=== PATIENT | male | born 1985 | race Two or more races ===

== ENCOUNTER 2017-12-11 21:37 | Emergency (ER) | payer MEDICAID ==
[~2017-12-11] VITALS: Ht 167.6 cm; Wt 103.4 kg
[~2017-12-11 21:37] MED LIST: AMLO5TAB4 PO; CYCL-1 PO; KETO10TA2 PO; ONDA4TAB6 PO
[2017-12-11 21:47] VITALS: BP 161/126
[2017-12-11] MEDS ORDERED: BUPIVAcaine/PF 2.5 mg/ml (0.25%) 30ml vial IJ ONE (22:25)
[2017-12-11] MEDS ORDERED: PROP40TA72 PO (23:10)
[2017-12-11] MEDS ORDERED: PENI500T2 PO (23:10)
== END 2017-12-11 23:22 | disposition home or self-care (01) ==
LOC: ER 21:37
DX: K04.7 Periapical abscess without sinus (principal); F12.10 Cannabis abuse, uncomplicated; I10 Essential (primary) hypertension; G89.29 Other chronic pain; Z98.890 Other specified postprocedural states; Z88.8 Allergy status to other drugs, medicaments and biological substances; Z79.899 Other long term (current) drug therapy
CPT/HCPCS: 64400; 99284; J3490

== ENCOUNTER 2019-07-02 13:55 | Emergency (ER) | payer MEDICAID ==
[~2019-07-02] VITALS: Ht 167.6 cm; Wt 109.0 kg
[2019-07-02] MEDS ORDERED: PENI500T2 PO (14:22)
[2019-07-02] MEDS ORDERED: BUPIVAcaine 0.5% W/EPI /PF 30ml vial SQ ONE (14:25)
[2019-07-02 14:48] VITALS: BP 150/87
== END 2019-07-02 14:53 | disposition home or self-care (01) ==
LOC: ER 13:56
DX: K08.89 Other specified disorders of teeth and supporting structures (principal); I10 Essential (primary) hypertension; G89.29 Other chronic pain; F41.9 Anxiety disorder, unspecified; F12.90 Cannabis use, unspecified, uncomplicated; Z98.890 Other specified postprocedural states; Z88.8 Allergy status to other drugs, medicaments and biological substances; Z79.2 Long term (current) use of antibiotics; Z79.899 Other long term (current) drug therapy
CPT/HCPCS: 64400; 99284

== ENCOUNTER 2020-03-14 12:32 | Emergency (ER) | payer MEDICAID ==
[~2020-03-14] VITALS: Ht 167.6 cm; Wt 103.0 kg
[2020-03-14 12:44] VITALS: BP 153/110
[2020-03-14] MEDS ORDERED: acetaminophen 325mg tablet PO ONE (14:35)
[2020-03-14 14:56] LABS: CLARITY,URINE CLEAR (Clear); COLOR,URINE YELLOW (Yellow); GLUCOSE, URINE NEGATIVE (Neg); KETONES,URINE NEGATIVE (Neg); LEUKOCYTE ESTERASE ,URINE NEGATIVE (Neg); NITRITES, URINE NEGATIVE (Neg); OCCULT BLOOD,URINE NEGATIVE (Neg); PH,URINE 6.5 (4.8-8.0); PROTEIN,URINE TRACE mg/dl (Neg); UROBILINOGEN,URINE 0.2 E.U/dL (0.2-1.0)
[2020-03-14 15:10] LABS: UA COLLECTION TYPE VOIDED
[2020-03-14 15:11] LABS: BACTERIA,URINE FEW /HPF (Neg); MUCUS STRANDS MANY /LPF (Neg); RBC,URINE NONE SEEN /HPF (0-2); SQUAMOUS EPITHELIAL CELL,UR FEW /LPF (FEW); WBC,URINE 0-4 /HPF (0-4)
[2020-03-14 15:12] LABS: HYALINE CASTS 0-3 /LPF (NEGATIVE)
[2020-03-14] MEDS ORDERED: LIDO700A32 TOP (15:20)
[2020-03-14] MEDS ORDERED: CYCL-1 PO (15:20)
== END 2020-03-14 15:40 | disposition home or self-care (01) ==
LOC: ER 12:33
DX: M54.5 Low back pain (principal); I10 Essential (primary) hypertension; G89.29 Other chronic pain; F41.9 Anxiety disorder, unspecified; F12.90 Cannabis use, unspecified, uncomplicated; Z98.890 Other specified postprocedural states; Z88.8 Allergy status to other drugs, medicaments and biological substances; Z79.899 Other long term (current) drug therapy
CPT/HCPCS: 76775; 81001; 99284

== ENCOUNTER 2020-04-15 10:43 | Emergency (ER) | payer MEDICAID ==
[~2020-04-15] VITALS: Ht 167.6 cm; Wt 109.1 kg
[~2020-04-15 10:43] MED LIST changes: +LIDO700A32 TOP
[2020-04-15 10:52] VITALS: BP 165/119
[2020-04-15] MEDS ORDERED: amLODIPine 5mg tablet PO ONE (11:15)
[2020-04-15 11:54] LABS: BASOPHILS % (AUTO) 0.4 % (0-1); EOSINOPHILS # (AUTO) 0.2 X10'3 (0-0.9); EOSINOPHILS % (AUTO) 2.3 % (0-6); HEMATOCRIT 42.9 % (42.0-52.0); HEMOGLOBIN 14.8 g/dl (14.0-17.9); LYMPHOCYTES # (AUTO) 1.9 X10'3 (1.1-4.8); MEAN CORPUSCULAR HEMOGLOBIN 30.3 PG (27.0-31.0); MEAN CORPUSCULAR HGB CONC 34.5 g/dL (33.0-36.5); MEAN CORPUSCULAR VOLUME 87.9 FL (78-98); MEAN PLATELET VOLUME 7.5 FL (7.4-10.4); MONOCYTES # (AUTO) 0.8 X10'3 (0-0.9); MONOCYTES % (AUTO) 8.6 % (2-12); NEUTROPHILS # (AUTO) 6.8 X10'3 (1.8-7.7); NEUTROPHILS % (AUTO) 69.7 % (42-75); PLATELET COUNT 335 X10'3 (140-440); RED BLOOD COUNT 4.87 X10'6 (4.70-6.10); RED CELL DISTRIBUTION WIDTH 14.7 % (11.5-14.5); WHITE BLOOD COUNT 9.8 X10'3 (4.5-11.0)
[2020-04-15 12:02] LABS: ALANINE AMINOTRANSFERASE 64 U/L (12-78); ALBUMIN 3.9 G/DL (3.4-5.0); ALBUMIN/GLOBULIN RATIO 1.1 (1.1-1.5); ALKALINE PHOSPHATASE 85 IU/L (46-116); ANION GAP 8 (8-16); ASPARTATE AMINO TRANSFERASE 19 U/L (10-37); BILIRUBIN,TOTAL 0.5 MG/DL (0.1-1.0); BLOOD UREA NITROGEN 12 MG/DL (7-18); BUN/CREATININE RATIO 11.4 (5.4-32.0); CALCIUM 9.5 MG/DL (8.5-10.1); CHLORIDE 108 MMOL/L (99-107); CREATININE 1.05 MG/DL (0.60-1.10); GLUCOSE 96 MG/DL (70-104); SODIUM 147 MMOL/L (135-145); TOTAL CARBON DIOXIDE 30.8 MMOL/L (24-32); TOTAL PROTEIN 7.5 G/DL (6.4-8.2); eGFR 80 ML/MIN
[2020-04-15 12:04] LABS: POTASSIUM 2.6 MMOL/L (3.5-5.1)
[2020-04-15] MEDS ORDERED: potassium chloride 10mEq ER tablet PO STA (12:15)
[2020-04-15] MEDS ORDERED: POTA10TA19 PO (12:51)
[2020-04-15] MEDS ORDERED: NICO-631 TD (13:33)
== END 2020-04-15 13:39 | disposition home or self-care (01) ==
LOC: ER 10:45
DX: E87.6 Hypokalemia (principal); I10 Essential (primary) hypertension; G89.29 Other chronic pain; F41.9 Anxiety disorder, unspecified; F12.90 Cannabis use, unspecified, uncomplicated; Z98.890 Other specified postprocedural states; Z88.8 Allergy status to other drugs, medicaments and biological substances; Z79.899 Other long term (current) drug therapy
CPT/HCPCS: 36415; 80053; 85025; 99283

== ENCOUNTER 2020-07-31 17:22 | Emergency (ER) | payer MEDICAID ==
[~2020-07-31] VITALS: Ht 167.6 cm; Wt 109.1 kg
--- NOTE | 2020-07-31 18:53 | NUR ---
beverley holman with pt now. pt to have labsdrawn and collect a covid send out.
[2020-07-31 19:23] LABS: BASOPHILS # (AUTO) 0.1 X10'3 (0-0.2); BASOPHILS % (AUTO) 0.5 % (0-1); EOSINOPHILS # (AUTO) 0.3 X10'3 (0-0.9); EOSINOPHILS % (AUTO) 2.7 % (0-6); HEMATOCRIT 43.5 % (42.0-52.0); HEMOGLOBIN 14.8 g/dl (14.0-17.9); LYMPHOCYTES # (AUTO) 2.3 X10'3 (1.1-4.8); LYMPHOCYTES % (AUTO) 21.5 % (21-51); MEAN CORPUSCULAR HEMOGLOBIN 29.6 PG (27.0-31.0); MEAN CORPUSCULAR HGB CONC 34.1 g/dL (33.0-36.5); MEAN CORPUSCULAR VOLUME 86.8 FL (78-98); MEAN PLATELET VOLUME 7.3 FL (7.4-10.4); MONOCYTES # (AUTO) 0.9 X10'3 (0-0.9); MONOCYTES % (AUTO) 8.7 % (2-12); NEUTROPHILS % (AUTO) 66.6 % (42-75); PLATELET COUNT 321 X10'3 (140-440); RED BLOOD COUNT 5.01 X10'6 (4.70-6.10); RED CELL DISTRIBUTION WIDTH 14.3 % (11.5-14.5); WHITE BLOOD COUNT 10.5 X10'3 (4.5-11.0)
[2020-07-31 19:43] LABS: ALANINE AMINOTRANSFERASE 69 U/L (12-78); ALBUMIN 4.2 G/DL (3.4-5.0); ALBUMIN/GLOBULIN RATIO 1.1 (1.1-1.5); ALKALINE PHOSPHATASE 89 IU/L (46-116); ANION GAP 8 (8-16); ASPARTATE AMINO TRANSFERASE 25 U/L (10-37); BILIRUBIN,TOTAL 0.5 MG/DL (0.1-1.0); BLOOD UREA NITROGEN 12 MG/DL (7-18); BUN/CREATININE RATIO 11.3 (5.4-32.0); CALCIUM 9.8 MG/DL (8.5-10.1); CHLORIDE 107 MMOL/L (99-107); CREATININE 1.06 MG/DL (0.60-1.10); GLUCOSE 98 MG/DL (70-104); SODIUM 142 MMOL/L (135-145); TOTAL CARBON DIOXIDE 27.5 MMOL/L (24-32); TOTAL PROTEIN 8.2 G/DL (6.4-8.2); eGFR 79 ML/MIN
[2020-07-31 19:46] LABS: POTASSIUM 2.9 MMOL/L (3.5-5.1)
[2020-07-31] MEDS ORDERED: potassium Cl 20 mEq SR tablet PO STA (19:52)
[2020-07-31] MEDS ORDERED: POTA10TA10 PO (20:08)
[2020-07-31 20:13] VITALS: BP 152/108
== END 2020-07-31 20:19 | disposition home or self-care (01) ==
LOC: ER 17:23
DX: E87.6 Hypokalemia (principal); R43.8 Other disturbances of smell and taste; R51.9 Headache, unspecified; Z20.828 Contact with and (suspected) exposure to other viral communicable diseases; I10 Essential (primary) hypertension; G89.29 Other chronic pain; F41.9 Anxiety disorder, unspecified; F12.90 Cannabis use, unspecified, uncomplicated; Z98.890 Other specified postprocedural states; Z88.8 Allergy status to other drugs, medicaments and biological substances; Z79.899 Other long term (current) drug therapy
CPT/HCPCS: 36415; 80053; 85025; 87635; 93005; 99284

== ENCOUNTER 2020-08-12 19:01 | Emergency (ER) | payer MEDICAID ==
[~2020-08-12] VITALS: Ht 167.6 cm; Wt 84.0 kg
[2020-08-12 19:57] LABS: BASOPHILS % (AUTO) 0.3 % (0-1); EOSINOPHILS # (AUTO) 0.3 X10'3 (0-0.9); EOSINOPHILS % (AUTO) 2.6 % (0-6); HEMATOCRIT 41.6 % (42.0-52.0); HEMOGLOBIN 14.4 g/dl (14.0-17.9); LYMPHOCYTES # (AUTO) 2.6 X10'3 (1.1-4.8); LYMPHOCYTES % (AUTO) 23.9 % (21-51); MEAN CORPUSCULAR HEMOGLOBIN 29.9 PG (27.0-31.0); MEAN CORPUSCULAR HGB CONC 34.6 g/dL (33.0-36.5); MEAN CORPUSCULAR VOLUME 86.3 FL (78-98); MEAN PLATELET VOLUME 7.4 FL (7.4-10.4); MONOCYTES # (AUTO) 0.9 X10'3 (0-0.9); MONOCYTES % (AUTO) 8.9 % (2-12); NEUTROPHILS # (AUTO) 6.9 X10'3 (1.8-7.7); NEUTROPHILS % (AUTO) 64.3 % (42-75); PLATELET COUNT 330 X10'3 (140-440); RED BLOOD COUNT 4.82 X10'6 (4.70-6.10); RED CELL DISTRIBUTION WIDTH 14.1 % (11.5-14.5); WHITE BLOOD COUNT 10.7 X10'3 (4.5-11.0)
[2020-08-12 20:05] LABS: ALANINE AMINOTRANSFERASE 59 U/L (12-78); ALBUMIN 4.1 G/DL (3.4-5.0); ALKALINE PHOSPHATASE 83 IU/L (46-116); ANION GAP 9 (8-16); ASPARTATE AMINO TRANSFERASE 23 U/L (10-37); BILIRUBIN,TOTAL 0.6 MG/DL (0.1-1.0); BLOOD UREA NITROGEN 12 MG/DL (7-18); BUN/CREATININE RATIO 12.5 (5.4-32.0); CHLORIDE 106 MMOL/L (99-107); CREATININE 0.96 MG/DL (0.60-1.10); GLUCOSE 81 MG/DL (70-104); SODIUM 144 MMOL/L (135-145); TOTAL CARBON DIOXIDE 28.9 MMOL/L (24-32); TOTAL PROTEIN 8.1 G/DL (6.4-8.2); eGFR 88 ML/MIN
[2020-08-12 20:08] LABS: POTASSIUM 2.8 MMOL/L (3.5-5.1)
[2020-08-12] MEDS ORDERED: potassium Cl 20 mEq SR tablet PO STA (20:22)
[2020-08-12] MEDS ORDERED: magnesium oxide 400mg tablet PO ONE (20:25)
[2020-08-12 20:28] VITALS: BP 136/62
== END 2020-08-12 21:01 | disposition home or self-care (01) ==
LOC: ER 19:02
DX: E87.6 Hypokalemia (principal); I10 Essential (primary) hypertension; G89.29 Other chronic pain; F41.9 Anxiety disorder, unspecified; F12.90 Cannabis use, unspecified, uncomplicated; Z98.890 Other specified postprocedural states; Z88.8 Allergy status to other drugs, medicaments and biological substances; Z79.899 Other long term (current) drug therapy
CPT/HCPCS: 36415; 71045; 80053; 83880; 84484; 85025; 93005; 99285

== ENCOUNTER 2020-08-23 20:22 | Emergency (ER) | payer MEDICAID ==
[~2020-08-23] VITALS: Ht 167.6 cm; Wt 109.1 kg
[2020-08-23 22:27] LABS: ALBUMIN 4.2 G/DL (3.4-5.0); ANION GAP 10 (8-16); BLOOD UREA NITROGEN 13 MG/DL (7-18); BUN/CREATININE RATIO 13.8 (5.4-32.0); CALCIUM 9.4 MG/DL (8.5-10.1); CHLORIDE 105 MMOL/L (99-107); CREATININE 0.94 MG/DL (0.60-1.10); GLUCOSE 98 MG/DL (70-104); POTASSIUM 3.2 MMOL/L (3.5-5.1); SODIUM 140 MMOL/L (135-145); TOTAL CARBON DIOXIDE 25.4 MMOL/L (24-32); eGFR 90 ML/MIN
[2020-08-23] MEDS ORDERED: potassium Cl 20 mEq SR tablet PO STA (22:37)
[2020-08-23 22:44] VITALS: BP 177/11
== END 2020-08-23 22:46 | disposition home or self-care (01) ==
LOC: ER 20:24
DX: E87.6 Hypokalemia (principal); F41.9 Anxiety disorder, unspecified; I10 Essential (primary) hypertension; G89.29 Other chronic pain; F17.200 Nicotine dependence, unspecified, uncomplicated; Z88.8 Allergy status to other drugs, medicaments and biological substances; Z79.899 Other long term (current) drug therapy
CPT/HCPCS: 36415; 80048; 93005; 99284; 99285

== ENCOUNTER 2020-11-24 15:19 | Inpatient (IN) | payer MEDICAID ==
[~2020-11-24] VITALS: Ht 167.6 cm; Wt 96.1 kg
[2020-11-24 16:09] LABS: BASOPHILS % (AUTO) 0.5 % (0-1); EOSINOPHILS # (AUTO) 0.2 X10'3 (0-0.9); EOSINOPHILS % (AUTO) 2.4 % (0-6); HEMATOCRIT 39.6 % (42.0-52.0); HEMOGLOBIN 13.9 g/dl (14.0-17.9); LYMPHOCYTES # (AUTO) 2.3 X10'3 (1.1-4.8); LYMPHOCYTES % (AUTO) 22.3 % (21-51); MEAN CORPUSCULAR HEMOGLOBIN 29.7 PG (27.0-31.0); MEAN PLATELET VOLUME 7.6 FL (7.4-10.4); MONOCYTES # (AUTO) 0.7 X10'3 (0-0.9); MONOCYTES % (AUTO) 6.6 % (2-12); NEUTROPHILS % (AUTO) 68.2 % (42-75); PLATELET COUNT 331 X10'3 (140-440); RED BLOOD COUNT 4.66 X10'6 (4.70-6.10); RED CELL DISTRIBUTION WIDTH 14.7 % (11.5-14.5); WHITE BLOOD COUNT 10.3 X10'3 (4.5-11.0)
[2020-11-24 16:23] LABS: ALANINE AMINOTRANSFERASE 64 U/L (12-78); ALBUMIN 3.9 G/DL (3.4-5.0); ALKALINE PHOSPHATASE 86 IU/L (46-116); ANION GAP 9 (8-16); ASPARTATE AMINO TRANSFERASE 23 U/L (10-37); BILIRUBIN,TOTAL 0.5 MG/DL (0.1-1.0); BLOOD UREA NITROGEN 16 MG/DL (7-18); BUN/CREATININE RATIO 16.7 (5.4-32.0); CHLORIDE 107 MMOL/L (99-107); CREATININE 0.96 MG/DL (0.60-1.10); GLUCOSE 113 MG/DL (70-104); SODIUM 144 MMOL/L (135-145); TOTAL CARBON DIOXIDE 28.4 MMOL/L (24-32); TOTAL PROTEIN 7.8 G/DL (6.4-8.2); eGFR 88 ML/MIN
[2020-11-24 16:25] LABS: POTASSIUM 2.5 MMOL/L (3.5-5.1)
[2020-11-24 17:05] LABS: MAGNESIUM 2.1 MG/DL (1.5-2.4); PHOSPHORUS 3.4 MG/DL (2.3-4.5)
[2020-11-24] MEDS ORDERED: potassium Cl 10 mEq/100mL bag IV ONE (17:05)
[2020-11-24] MEDS ORDERED: POTASSIUM BICARB 20meq eff tab 20 MEQ TABLET.EFF PO ONE (17:15)
[2020-11-24] MEDS ORDERED: HYDR-3927 PO (19:09)
[2020-11-24] MEDS ORDERED: POTA20TA19 PO (19:09)
[2020-11-24] MEDS ORDERED: LOSA100T57 PO (19:09)
[2020-11-24] MEDS ORDERED: INDLA80C PO (19:09)
[2020-11-24] MEDS ORDERED: AMLO5TAB16 PO (19:09)
[2020-11-24] MEDS ORDERED: hydrOXYzine 25 MG tablet PO PRN (20:20)
[2020-11-24] MEDS ORDERED: acetaminophen 325mg tablet PO PRN (20:30)
[2020-11-24] MEDS ORDERED: potassium Cl 20 mEq SR tablet PO PRN (20:30)
[2020-11-24] MEDS ORDERED: potassium Cl 40MEQ/1/2NS 520ml 520 ML IV PRN ×2 (20:30)
[2020-11-24] MEDS ORDERED: mag hydrox/Alum hydrox/simeth 30ml oral suspension PO PRN (20:30)
[2020-11-24] MEDS ORDERED: magnesium 2GM in 50ml NS 50 ML IV PRN (20:30)
[2020-11-24] MEDS ORDERED: magnesium 4gm in 100ml NS 100 ML IV PRN (20:30)
[2020-11-24] MEDS ORDERED: magnesium hydroxide 30ml (MOM) UD suspension PO PRN (20:30)
[2020-11-24] MEDS ORDERED: ondansetron/PF 4mg/2ml inj IV PRN (20:30)
[2020-11-24] MEDS: potassium Cl 20mEq in NS 1,000 ML IV SCH (21:01)
--- NOTE | 2020-11-24 21:16 | NUR ---
PAGER ID: [phone] MESSAGE: CHINTAN [id number] BED 6 JOE BP HAS BEEN ELEVATED AT 169/105 TOOK BP MEDS THIS AM.
[2020-11-24] MEDS ORDERED: hydrALAZINE 20mg/ml inj. IV PRN (21:20)
[2020-11-24] MEDS: potassium Cl 20 mEq SR tablet PO PRN (21:41)
--- NOTE | 2020-11-24 23:49 | NUR ---
PAGER ID: [phone] MESSAGE: CHINTAN [id number] RE: BED 6 MCALNE, FYI K DROPPED TO 2.3, REPLACING PER PROTOCOL.
[2020-11-25] MEDS: potassium Cl 20 mEq SR tablet PO PRN ×4 (01:44→14:19)
--- NOTE | 2020-11-25 01:51 | NUR ---
Pt is resting comfortably in bed at this time, easy to arouse, reports that his muscle aches and tremors have ceased.
[2020-11-25] MEDS: potassium Cl 20mEq in NS 1,000 ML IV SCH ×2 (07:02→17:18)
[2020-11-25 07:30] LABS: BASOPHILS % (AUTO) 0.4 % (0-1); EOSINOPHILS # (AUTO) 0.2 X10'3 (0-0.9); EOSINOPHILS % (AUTO) 2.7 % (0-6); HEMATOCRIT 39.9 % (42.0-52.0); HEMOGLOBIN 13.7 g/dl (14.0-17.9); LYMPHOCYTES % (AUTO) 24.6 % (21-51); MEAN CORPUSCULAR HEMOGLOBIN 29.4 PG (27.0-31.0); MEAN CORPUSCULAR HGB CONC 34.3 g/dL (33.0-36.5); MEAN CORPUSCULAR VOLUME 85.6 FL (78-98); MEAN PLATELET VOLUME 7.4 FL (7.4-10.4); MONOCYTES # (AUTO) 0.7 X10'3 (0-0.9); MONOCYTES % (AUTO) 8.4 % (2-12); NEUTROPHILS # (AUTO) 5.1 X10'3 (1.8-7.7); NEUTROPHILS % (AUTO) 63.9 % (42-75); PLATELET COUNT 287 X10'3 (140-440); RED BLOOD COUNT 4.67 X10'6 (4.70-6.10); RED CELL DISTRIBUTION WIDTH 14.6 % (11.5-14.5)
[2020-11-25 07:45] LABS: ALANINE AMINOTRANSFERASE 62 U/L (12-78); ALBUMIN 3.5 G/DL (3.4-5.0); ALBUMIN/GLOBULIN RATIO 0.9 (1.1-1.5); ALKALINE PHOSPHATASE 78 IU/L (46-116); ANION GAP 9 (8-16); ASPARTATE AMINO TRANSFERASE 23 U/L (10-37); BILIRUBIN,TOTAL 0.6 MG/DL (0.1-1.0); BLOOD UREA NITROGEN 10 MG/DL (7-18); BUN/CREATININE RATIO 11.9 (5.4-32.0); CALCIUM 8.5 MG/DL (8.5-10.1); CHLORIDE 108 MMOL/L (99-107); CREATININE 0.84 MG/DL (0.60-1.10); GLUCOSE 97 MG/DL (70-104); MAGNESIUM 2.1 MG/DL (1.5-2.4); SODIUM 144 MMOL/L (135-145); TOTAL CARBON DIOXIDE 27.5 MMOL/L (24-32); TOTAL PROTEIN 7.2 G/DL (6.4-8.2); eGFR > 90 ML/MIN
[2020-11-25 07:47] LABS: POTASSIUM 2.9 MMOL/L (3.5-5.1)
[2020-11-25] MEDS ORDERED: propranolol LA 60 MG cap.SA.24H PO SCH (08:00)
[2020-11-25] MEDS ORDERED: K and/or MAG REPLACEMENT MC SCH (08:00)
[2020-11-25] MEDS ORDERED: losartan 50mg tablet PO SCH (08:00)
[2020-11-25] MEDS ORDERED: amLODIPine 5mg tablet PO SCH (08:00)
--- NOTE | 2020-11-25 08:31 | NUR ---
Patient in room ED 6. I have received report from Reyna RN and had the opportunity to ask questions and assume patient care.
[2020-11-25 09:00] VITALS: BP 179/108
--- NOTE | 2020-11-25 09:27 | NUR ---
patient oriented to room and call light
[2020-11-25 11:00] VITALS: BP 151/90
[2020-11-25 15:00] VITALS: BP 146/98
--- NOTE | 2020-11-25 17:23 | NUR ---
Page Sent to Dr. Lutz promotional table spacer PAGER ID: [phone] MESSAGE: [id number] Neva.. FYI K 3.6 Do you want to discharge? Shelbi [phone]
[2020-11-25 18:00] VITALS: BP 177/109
[2020-11-25] MEDS ORDERED: POTA20TA19 PO (18:03)
--- NOTE | 2020-11-25 18:09 | NUR ---
Problems reprioritized. Patient report given, questions answered & plan of care reviewed with Lian RN. Patient alert, oriented, and appropriate
--- NOTE | 2020-11-25 18:10 | NUR ---
discharge orders in per report, acknowledged orders
--- NOTE | 2020-11-25 18:42 | NUR ---
Patient in room PCU 3023. I have received report from Kimmie SUMMERS and had the opportunity to ask questions and assume patient care.
[2020-11-25 19:50] VITALS: BP 158/104
[2020-11-25] MEDS ORDERED: enoxaparin 40mg/0.4ml syringe SQ SCH (20:00)
== END 2020-11-25 20:20 | disposition home or self-care (01) | DRG 425 ==
LOC: ER 15:20 → ED HOLD 20:26 → PCU 3S 11-25 08:54
PROVIDERS: ADMIT Family Medicine; ATTEND Family Medicine
DX: E87.6 Hypokalemia (principal); I10 Essential (primary) hypertension; F41.9 Anxiety disorder, unspecified; G89.29 Other chronic pain; R00.2 Palpitations; M62.838 Other muscle spasm; Z82.49 Family history of ischemic heart disease and other diseases of the circulatory system; Z83.3 Family history of diabetes mellitus; Z88.8 Allergy status to other drugs, medicaments and biological substances; Z79.899 Other long term (current) drug therapy; Z87.891 Personal history of nicotine dependence
CPT/HCPCS: 36415; 71045; 80053; 83735; 84100; 84132; 84484; 85025; 87081; 93005; 96365; 99285; G0378; J0360; J1650; J3480; Q0177

== ENCOUNTER 2020-11-29 17:10 | Emergency (ER) | payer MEDICAID ==
[~2020-11-29] VITALS: Ht 167.6 cm; Wt 104.5 kg
[~2020-11-29 17:10] MED LIST changes: +AMLO5TAB16 PO; -AMLO5TAB4 PO; -CYCL-1 PO; +HYDR-3927 PO; +INDLA80C PO; -KETO10TA2 PO; -LIDO700A32 TOP; +LOSA100T57 PO; -ONDA4TAB6 PO; +POTA20TA19 PO
[2020-11-29 18:13] LABS: BASOPHILS % (AUTO) 0.4 % (0-1); EOSINOPHILS # (AUTO) 0.2 X10'3 (0-0.9); EOSINOPHILS % (AUTO) 1.7 % (0-6); HEMOGLOBIN 14.7 g/dl (14.0-17.9); LYMPHOCYTES % (AUTO) 20.6 % (21-51); MEAN CORPUSCULAR HEMOGLOBIN 29.6 PG (27.0-31.0); MEAN CORPUSCULAR VOLUME 84.5 FL (78-98); MEAN PLATELET VOLUME 7.4 FL (7.4-10.4); MONOCYTES # (AUTO) 0.8 X10'3 (0-0.9); NEUTROPHILS # (AUTO) 6.8 X10'3 (1.8-7.7); NEUTROPHILS % (AUTO) 69.3 % (42-75); PLATELET COUNT 312 X10'3 (140-440); RED BLOOD COUNT 4.97 X10'6 (4.70-6.10); RED CELL DISTRIBUTION WIDTH 14.4 % (11.5-14.5); WHITE BLOOD COUNT 9.9 X10'3 (4.5-11.0)
[2020-11-29 18:29] LABS: ALANINE AMINOTRANSFERASE 74 U/L (12-78); ALBUMIN 4.2 G/DL (3.4-5.0); ALKALINE PHOSPHATASE 93 IU/L (46-116); ANION GAP 10 (8-16); ASPARTATE AMINO TRANSFERASE 25 U/L (10-37); BILIRUBIN,TOTAL 0.6 MG/DL (0.1-1.0); BLOOD UREA NITROGEN 16 MG/DL (7-18); CALCIUM 9.3 MG/DL (8.5-10.1); CHLORIDE 104 MMOL/L (99-107); CREATININE 0.89 MG/DL (0.60-1.10); GLUCOSE 91 MG/DL (70-104); POTASSIUM 3.3 MMOL/L (3.5-5.1); SODIUM 140 MMOL/L (135-145); TOTAL CARBON DIOXIDE 25.8 MMOL/L (24-32); TOTAL PROTEIN 8.3 G/DL (6.4-8.2); eGFR > 90 ML/MIN
[2020-11-29 18:31] LABS: CLARITY,URINE CLEAR (Clear); COLOR,URINE YELLOW (Yellow); GLUCOSE, URINE NEGATIVE (Neg); KETONES,URINE NEGATIVE (Neg); LEUKOCYTE ESTERASE ,URINE NEGATIVE (Neg); NITRITES, URINE NEGATIVE (Neg); OCCULT BLOOD,URINE NEGATIVE (Neg); PROTEIN,URINE NEGATIVE (Neg); URINE AMPHETAMINE SCREEN NEGATIVE (Neg); URINE BARBITUATE SCREEN NEGATIVE (Neg); URINE BENZODIAZEPINES SCREEN NEGATIVE (Neg); URINE CANNABINOID SCREEN NEGATIVE (Neg); URINE COCAINE SCREEN NEGATIVE (Neg); URINE METHADONE SCREEN NEGATIVE (Neg); URINE OPIATE SCREEN NEGATIVE (Neg); URINE PHENCYCLIDINE SCREEN NEGATIVE (Neg); UROBILINOGEN,URINE 0.2 E.U/dL (0.2-1.0)
[2020-11-29 18:40] LABS: MAGNESIUM 2.3 MG/DL (1.5-2.4)
[2020-11-29 18:40] LABS: UA COLLECTION TYPE CLN CATCH MIDSTREAM
[2020-11-29 19:06] VITALS: BP 170/109
== END 2020-11-29 19:08 | disposition home or self-care (01) ==
LOC: ER 17:11
DX: R25.2 Cramp and spasm (principal); R00.2 Palpitations; E87.6 Hypokalemia; I10 Essential (primary) hypertension; G89.29 Other chronic pain; F41.9 Anxiety disorder, unspecified; Z98.890 Other specified postprocedural states; Z72.89 Other problems related to lifestyle; Z88.8 Allergy status to other drugs, medicaments and biological substances; Z79.899 Other long term (current) drug therapy
CPT/HCPCS: 36415; 80053; 80305; 81003; 83735; 85025; 99283

== ENCOUNTER 2020-12-26 18:11 | Emergency (ER) | payer MEDICAID ==
[~2020-12-26] VITALS: Ht 167.6 cm; Wt 104.5 kg
[2020-12-26 18:32] VITALS: BP 190/126
[2020-12-26 20:27] LABS: BASOPHILS % (AUTO) 0.4 % (0-1); EOSINOPHILS # (AUTO) 0.2 X10'3 (0-0.9); EOSINOPHILS % (AUTO) 2.2 % (0-6); HEMOGLOBIN 14.5 g/dl (14.0-17.9); LYMPHOCYTES # (AUTO) 2.2 X10'3 (1.1-4.8); LYMPHOCYTES % (AUTO) 24.2 % (21-51); MEAN CORPUSCULAR HEMOGLOBIN 29.1 PG (27.0-31.0); MEAN CORPUSCULAR HGB CONC 33.6 g/dL (33.0-36.5); MEAN CORPUSCULAR VOLUME 86.6 FL (78-98); MEAN PLATELET VOLUME 7.5 FL (7.4-10.4); MONOCYTES # (AUTO) 0.7 X10'3 (0-0.9); NEUTROPHILS % (AUTO) 65.2 % (42-75); PLATELET COUNT 295 X10'3 (140-440); RED BLOOD COUNT 4.97 X10'6 (4.70-6.10); WHITE BLOOD COUNT 9.2 X10'3 (4.5-11.0)
[2020-12-26 20:38] LABS: ALANINE AMINOTRANSFERASE 98 U/L (12-78); ALBUMIN 4.2 G/DL (3.4-5.0); ALBUMIN/GLOBULIN RATIO 1.1 (1.1-1.5); ALKALINE PHOSPHATASE 91 IU/L (46-116); ANION GAP 8 (8-16); ASPARTATE AMINO TRANSFERASE 28 U/L (10-37); BILIRUBIN,TOTAL 0.4 MG/DL (0.1-1.0); BLOOD UREA NITROGEN 16 MG/DL (7-18); BUN/CREATININE RATIO 15.7 (5.4-32.0); CALCIUM 9.6 MG/DL (8.5-10.1); CHLORIDE 106 MMOL/L (99-107); CREATININE 1.02 MG/DL (0.60-1.10); GLUCOSE 92 MG/DL (70-104); SODIUM 141 MMOL/L (135-145); TOTAL CARBON DIOXIDE 26.7 MMOL/L (24-32); TOTAL PROTEIN 8.1 G/DL (6.4-8.2); eGFR 82 ML/MIN
== END 2020-12-26 20:52 | disposition home or self-care (01) ==
LOC: ER 18:13
DX: R25.2 Cramp and spasm (principal); E87.6 Hypokalemia; Z13.9 Encounter for screening, unspecified; I10 Essential (primary) hypertension; G89.29 Other chronic pain; Z72.89 Other problems related to lifestyle; Z88.8 Allergy status to other drugs, medicaments and biological substances; Z79.899 Other long term (current) drug therapy
CPT/HCPCS: 36415; 80053; 84484; 85025; 93005; 99284

== ENCOUNTER 2021-03-25 18:08 | Emergency (ER) | payer MEDICAID ==
[~2021-03-25] VITALS: Ht 167.6 cm; Wt 102.5 kg
[2021-03-25] MEDS ORDERED: pantoprazole 40 MG vial IV ONE (20:55)
[2021-03-25] MEDS ORDERED: normal saline 1000ML IV soln IVB ONE (20:55)
[2021-03-25] MEDS ORDERED: ondansetron/PF 4mg/2ml inj IV ONE (20:55)
[2021-03-25 21:06] LABS: BASOPHILS % (AUTO) 0.5 % (0-1); EOSINOPHILS # (AUTO) 0.2 X10'3 (0-0.9); EOSINOPHILS % (AUTO) 1.9 % (0-6); HEMATOCRIT 39.5 % (42.0-52.0); HEMOGLOBIN 13.4 g/dl (14.0-17.9); LYMPHOCYTES % (AUTO) 21.8 % (21-51); MEAN CORPUSCULAR HEMOGLOBIN 29.6 PG (27.0-31.0); MEAN CORPUSCULAR VOLUME 87.2 FL (78-98); MEAN PLATELET VOLUME 6.8 FL (7.4-10.4); MONOCYTES # (AUTO) 0.8 X10'3 (0-0.9); MONOCYTES % (AUTO) 9.3 % (2-12); NEUTROPHILS % (AUTO) 66.5 % (42-75); PLATELET COUNT 294 X10'3 (140-440); RED BLOOD COUNT 4.53 X10'6 (4.70-6.10); RED CELL DISTRIBUTION WIDTH 14.8 % (11.5-14.5)
[2021-03-25 21:18] LABS: ALANINE AMINOTRANSFERASE 62 U/L (12-78); ALBUMIN 3.9 G/DL (3.4-5.0); ALBUMIN/GLOBULIN RATIO 1.1 (1.1-1.5); ALKALINE PHOSPHATASE 90 IU/L (46-116); ANION GAP 10 (8-16); ASPARTATE AMINO TRANSFERASE 18 U/L (10-37); BILIRUBIN,TOTAL 0.5 MG/DL (0.1-1.0); BLOOD UREA NITROGEN 18 MG/DL (7-18); BUN/CREATININE RATIO 17.1 (5.4-32.0); CHLORIDE 105 MMOL/L (99-107); CREATININE 1.05 MG/DL (0.60-1.10); GLUCOSE 97 MG/DL (70-104); POTASSIUM 3.8 MMOL/L (3.5-5.1); SODIUM 140 MMOL/L (135-145); TOTAL CARBON DIOXIDE 25.2 MMOL/L (24-32); TOTAL PROTEIN 7.6 G/DL (6.4-8.2); eGFR 79 ML/MIN
[2021-03-25] MEDS ORDERED: PANT-47 PO ×3 (21:55→22:05)
--- NOTE | 2021-03-25 21:55 | NUR ---
DR. CASTILLO BACK IN TO CHECK ON PT 1 HR AFTER RECEIVING MEDS. PT REPORTS SOME RELIEF OF SYMPOTOMS. NOW DC READY.
[2021-03-25] MEDS ORDERED: ONDA8TAB13 PO ×3 (21:56→22:05)
[2021-03-25 22:09] VITALS: BP 130/96
== END 2021-03-25 22:10 | disposition home or self-care (01) ==
LOC: ER 18:09
DX: R11.0 Nausea (principal); E87.6 Hypokalemia; R51.9 Headache, unspecified; I10 Essential (primary) hypertension; G89.29 Other chronic pain; F41.9 Anxiety disorder, unspecified; Z98.890 Other specified postprocedural states; Z72.0 Tobacco use; Z72.89 Other problems related to lifestyle; Z88.8 Allergy status to other drugs, medicaments and biological substances; Z79.899 Other long term (current) drug therapy
CPT/HCPCS: 80053; 85025; 96361; 96374; 96375; 99284; C9113; J2405; J7030

== ENCOUNTER 2021-03-31 13:00 | Emergency (ER) | payer MEDICAID ==
[~2021-03-31] VITALS: Ht 167.6 cm; Wt 101.5 kg
[~2021-03-31 13:00] MED LIST changes: +ONDA8TAB13 PO; +PANT-47 PO
[2021-03-31 13:46] LABS: BASOPHILS % (AUTO) 0.1 % (0-1); EOSINOPHILS # (AUTO) 0.1 X10'3 (0-0.9); EOSINOPHILS % (AUTO) 1.2 % (0-6); HEMATOCRIT 39.1 % (42.0-52.0); HEMOGLOBIN 13.3 g/dl (14.0-17.9); LYMPHOCYTES # (AUTO) 1.7 X10'3 (1.1-4.8); LYMPHOCYTES % (AUTO) 15.6 % (21-51); MEAN CORPUSCULAR HGB CONC 34.1 g/dL (33.0-36.5); MEAN CORPUSCULAR VOLUME 87.9 FL (78-98); MONOCYTES # (AUTO) 0.8 X10'3 (0-0.9); MONOCYTES % (AUTO) 6.9 % (2-12); NEUTROPHILS # (AUTO) 8.4 X10'3 (1.8-7.7); NEUTROPHILS % (AUTO) 76.2 % (42-75); PLATELET COUNT 310 X10'3 (140-440); RED BLOOD COUNT 4.44 X10'6 (4.70-6.10); RED CELL DISTRIBUTION WIDTH 14.4 % (11.5-14.5); WHITE BLOOD COUNT 10.9 X10'3 (4.5-11.0)
[2021-03-31 13:58] LABS: ALANINE AMINOTRANSFERASE 42 U/L (12-78); ALBUMIN/GLOBULIN RATIO 1.1 (1.1-1.5); ALKALINE PHOSPHATASE 77 IU/L (46-116); ANION GAP 8 (8-16); ASPARTATE AMINO TRANSFERASE 11 U/L (10-37); BILIRUBIN,TOTAL 0.6 MG/DL (0.1-1.0); BLOOD UREA NITROGEN 21 MG/DL (7-18); BUN/CREATININE RATIO 19.1 (5.4-32.0); CALCIUM 9.4 MG/DL (8.5-10.1); CHLORIDE 108 MMOL/L (99-107); GLUCOSE 94 MG/DL (70-104); POTASSIUM 4.1 MMOL/L (3.5-5.1); SODIUM 142 MMOL/L (135-145); TOTAL CARBON DIOXIDE 26.1 MMOL/L (24-32); TOTAL PROTEIN 7.7 G/DL (6.4-8.2); eGFR 75 ML/MIN
[2021-03-31 14:51] VITALS: BP 129/86
== END 2021-03-31 14:54 | disposition home or self-care (01) ==
LOC: ER 13:01
DX: R00.2 Palpitations (principal); I10 Essential (primary) hypertension; E87.6 Hypokalemia; R07.89 Other chest pain; R11.0 Nausea; G89.29 Other chronic pain; F41.9 Anxiety disorder, unspecified; F17.200 Nicotine dependence, unspecified, uncomplicated; Z98.890 Other specified postprocedural states; Z72.89 Other problems related to lifestyle; Z88.8 Allergy status to other drugs, medicaments and biological substances; Z79.899 Other long term (current) drug therapy
CPT/HCPCS: 36415; 80053; 85025; 93005; 99284

== ENCOUNTER 2021-05-24 14:38 | Emergency (ER) | payer MEDICAID ==
[~2021-05-24] VITALS: Ht 167.6 cm; Wt 104.5 kg
[2021-05-24 15:31] LABS: BASOPHILS % (AUTO) 0.2 % (0-1); EOSINOPHILS # (AUTO) 0.2 X10'3 (0-0.9); EOSINOPHILS % (AUTO) 2.5 % (0-6); HEMATOCRIT 41.4 % (42.0-52.0); HEMOGLOBIN 14.2 g/dl (14.0-17.9); LYMPHOCYTES # (AUTO) 1.9 X10'3 (1.1-4.8); LYMPHOCYTES % (AUTO) 21.4 % (21-51); MEAN CORPUSCULAR HEMOGLOBIN 29.8 PG (27.0-31.0); MEAN CORPUSCULAR HGB CONC 34.2 g/dL (33.0-36.5); MEAN CORPUSCULAR VOLUME 87.1 FL (78-98); MONOCYTES # (AUTO) 0.9 X10'3 (0-0.9); MONOCYTES % (AUTO) 9.8 % (2-12); NEUTROPHILS % (AUTO) 66.1 % (42-75); PLATELET COUNT 325 X10'3 (140-440); RED BLOOD COUNT 4.76 X10'6 (4.70-6.10); RED CELL DISTRIBUTION WIDTH 14.5 % (11.5-14.5)
[2021-05-24 15:45] LABS: ALANINE AMINOTRANSFERASE 83 U/L (12-78); ALBUMIN 4.1 G/DL (3.4-5.0); ALBUMIN/GLOBULIN RATIO 1.1 (1.1-1.5); ALKALINE PHOSPHATASE 78 IU/L (46-116); ANION GAP 12 (8-16); ASPARTATE AMINO TRANSFERASE 28 U/L (10-37); BILIRUBIN,TOTAL 0.6 MG/DL (0.1-1.0); BLOOD UREA NITROGEN 18 MG/DL (7-18); BUN/CREATININE RATIO 18.2 (5.4-32.0); CALCIUM 8.9 MG/DL (8.5-10.1); CHLORIDE 107 MMOL/L (99-107); CREATININE 0.99 MG/DL (0.60-1.10); GLUCOSE 84 MG/DL (70-104); SODIUM 144 MMOL/L (135-145); TOTAL CARBON DIOXIDE 25.3 MMOL/L (24-32); TOTAL PROTEIN 7.9 G/DL (6.4-8.2); eGFR 85 ML/MIN
[2021-05-24 19:50] VITALS: BP 165/98
== END 2021-05-24 19:52 | disposition home or self-care (01) ==
LOC: ER 14:38
DX: E86.0 Dehydration (principal); R51.9 Headache, unspecified; R53.83 Other fatigue; R42 Dizziness and giddiness; I10 Essential (primary) hypertension; G89.29 Other chronic pain; F41.9 Anxiety disorder, unspecified; Z98.890 Other specified postprocedural states; Z72.89 Other problems related to lifestyle; Z88.8 Allergy status to other drugs, medicaments and biological substances; Z79.899 Other long term (current) drug therapy
CPT/HCPCS: 36415; 80053; 83880; 85025; 93005; 99284

== ENCOUNTER 2023-07-04 15:10 | Emergency (ER) | payer MEDICAID ==
[~2023-07-04] VITALS: Ht 167.6 cm; Wt 109.1 kg
[~2023-07-04 15:10] MED LIST changes: -LOSA100T57 PO; +LOSA100T58 PO; +POTA-207 PO; -POTA20TA19 PO
[2023-07-04 15:20] VITALS: TEMP 99.6
[2023-07-04 16:32] LABS: MEAN CORPUSCULAR HGB CONC 33.7 g/dL (33.0-36.5); MEAN PLATELET VOLUME 7.6 FL (7.4-10.4); PLATELET COUNT 303 X10'3 (140-440); RED CELL DISTRIBUTION WIDTH 14.5 % (11.5-14.5)
[2023-07-04 16:33] LABS: BASOPHILS % (AUTO) 0.3 % (0-1); EOSINOPHILS # (AUTO) 0.2 X10'3 (0-0.9); EOSINOPHILS % (AUTO) 1.6 % (0-6); HEMOGLOBIN 14.9 g/dl (14.0-17.9); LYMPHOCYTES # (AUTO) 2.1 X10'3 (1.1-4.8); LYMPHOCYTES % (AUTO) 19.2 % (21-51); MEAN CORPUSCULAR HEMOGLOBIN 29.5 PG (27.0-31.0); MEAN CORPUSCULAR VOLUME 87.4 FL (78-98); MONOCYTES # (AUTO) 0.9 X10'3 (0-0.9); MONOCYTES % (AUTO) 8.3 % (2-12); NEUTROPHILS # (AUTO) 7.9 X10'3 (1.8-7.7); NEUTROPHILS % (AUTO) 70.6 % (42-75); RED BLOOD COUNT 5.04 X10'6 (4.70-6.10); WHITE BLOOD COUNT 11.1 X10'3 (4.5-11.0)
[2023-07-04 16:39] LABS: ALANINE AMINOTRANSFERASE 43 U/L (12-78); ALBUMIN 4.1 G/DL (3.4-5.0); ALBUMIN/GLOBULIN RATIO 1.1 (1.1-1.5); ALKALINE PHOSPHATASE 83 IU/L (46-116); ANION GAP 8 (8-16); ASPARTATE AMINO TRANSFERASE 21 U/L (10-37); BILIRUBIN,TOTAL 0.5 MG/DL (0.1-1.0); BLOOD UREA NITROGEN 21 MG/DL (7-18); BUN/CREATININE RATIO 19.6 (10.0-20.0); CALCIUM 9.5 MG/DL (8.5-10.1); CHLORIDE 107 MMOL/L (99-107); CREATININE 1.07 MG/DL (0.60-1.10); GLUCOSE 93 MG/DL (70-104); POTASSIUM 3.5 MMOL/L (3.5-5.1); SODIUM 141 MMOL/L (135-145); TOTAL CARBON DIOXIDE 26.3 MMOL/L (24-32); TOTAL PROTEIN 7.8 G/DL (6.4-8.2); eCRCL 83 ML/MIN; eGFR 77 ML/MIN
[2023-07-04 16:51] LABS: PRO BRAIN NATRIURETIC PEPTIDE < 30 PG/ML (0-125)
[2023-07-04] MEDS ORDERED: PANT-47 PO (21:33)
[2023-07-04] MEDS: pantoprazole 40mg Tablet.DR PO SCH ×2 (21:54→21:55)
[2023-07-04 21:57] VITALS: BP 144/99; PULSE 84; RESP 16; O2SAT 95
== END 2023-07-04 21:59 | disposition home or self-care (01) ==
LOC: ER 15:11
DX: R10.9 Unspecified abdominal pain (principal); R42 Dizziness and giddiness; M79.10 Myalgia, unspecified site; R12 Heartburn
CPT/HCPCS: 36415; 71045; 80053; 82948; 83880; 84484; 85025; 93005; 99285

== ENCOUNTER 2023-09-16 15:43 | Emergency (ER) | payer MEDICAID ==
[~2023-09-16] VITALS: Ht 167.6 cm; Wt 105.3 kg
[2023-09-16 17:26] LABS: BASOPHILS # (AUTO) 0.1 X10'3 (0-0.2); BASOPHILS % (AUTO) 0.8 % (0-1); EOSINOPHILS # (AUTO) 0.2 X10'3 (0-0.9); EOSINOPHILS % (AUTO) 2.1 % (0-6); HEMATOCRIT 42.6 % (42.0-52.0); HEMOGLOBIN 14.6 g/dl (14.0-17.9); LYMPHOCYTES # (AUTO) 2.4 X10'3 (1.1-4.8); LYMPHOCYTES % (AUTO) 24.1 % (21-51); MEAN CORPUSCULAR HEMOGLOBIN 29.9 PG (27.0-31.0); MEAN CORPUSCULAR HGB CONC 34.3 g/dL (33.0-36.5); MEAN CORPUSCULAR VOLUME 87.1 FL (78-98); MEAN PLATELET VOLUME 7.4 FL (7.4-10.4); MONOCYTES # (AUTO) 0.7 X10'3 (0-0.9); MONOCYTES % (AUTO) 7.4 % (2-12); NEUTROPHILS # (AUTO) 6.6 X10'3 (1.8-7.7); NEUTROPHILS % (AUTO) 65.6 % (42-75); PLATELET COUNT 276 X10'3 (140-440); RED BLOOD COUNT 4.89 X10'6 (4.70-6.10); RED CELL DISTRIBUTION WIDTH 14.1 % (11.5-14.5)
[2023-09-16 17:44] LABS: ALANINE AMINOTRANSFERASE 54 U/L (12-78); ALBUMIN 4.1 G/DL (3.4-5.0); ALBUMIN/GLOBULIN RATIO 1.2 (1.1-1.5); ALKALINE PHOSPHATASE 75 IU/L (46-116); ANION GAP 10 (8-16); ASPARTATE AMINO TRANSFERASE 27 U/L (10-37); BILIRUBIN,TOTAL 0.4 MG/DL (0.1-1.0); BLOOD UREA NITROGEN 15 MG/DL (7-18); BUN/CREATININE RATIO 14.9 (10.0-20.0); CHLORIDE 104 MMOL/L (99-107); CREATININE 1.01 MG/DL (0.60-1.10); GLUCOSE 90 MG/DL (70-104); POTASSIUM 3.3 MMOL/L (3.5-5.1); SODIUM 138 MMOL/L (135-145); TOTAL CARBON DIOXIDE 23.9 MMOL/L (24-32); TOTAL PROTEIN 7.6 G/DL (6.4-8.2); eCRCL 88 ML/MIN; eGFR 82 ML/MIN
[2023-09-16 18:00] LABS: PRO BRAIN NATRIURETIC PEPTIDE < 30 PG/ML (0-125)
[2023-09-16] MEDS ORDERED: potassium chloride 10mEq ER tablet PO STA (18:06)
[2023-09-16] MEDS ORDERED: METH-797 PO (18:22)
[2023-09-16 20:11] VITALS: BP 153/106; PULSE 77; RESP 18; TEMP 98.6; O2SAT 97
--- NOTE | 2023-09-16 20:18 | NUR ---
agree with den's assessment, reviewed.
== END 2023-09-16 20:19 | disposition home or self-care (01) ==
LOC: ER 15:44
DX: S16.1XXA Strain of muscle, fascia and tendon at neck level, initial encounter (principal); E87.6 Hypokalemia; X58.XXXA Exposure to other specified factors, initial encounter; Y93.89 Activity, other specified; Y92.89 Other specified places as the place of occurrence of the external cause; Y99.8 Other external cause status
CPT/HCPCS: 36415; 71045; 80053; 83880; 84484; 85025; 93005; 99285

== ENCOUNTER 2023-10-15 12:36 | Emergency (ER) | payer MEDICAID ==
[~2023-10-15] VITALS: Ht 167.6 cm; Wt 108.6 kg
[~2023-10-15 12:36] MED LIST changes: +METH-797 PO
[2023-10-15 12:37] VITALS: BP 184/110; PULSE 94; TEMP 98.8; O2SAT 99
[2023-10-15 12:50] VITALS: RESP 16
== END 2023-10-15 14:40 | disposition home or self-care (01) ==
LOC: ER 12:36
DX: B34.9 Viral infection, unspecified (principal); Z20.822 Contact with and (suspected) exposure to COVID-19; F41.9 Anxiety disorder, unspecified; I10 Essential (primary) hypertension; Z88.8 Allergy status to other drugs, medicaments and biological substances; Z79.899 Other long term (current) drug therapy
CPT/HCPCS: 36415; 87502; 87503; 87811; 99283

== ENCOUNTER 2023-11-11 18:27 | Emergency (ER) | payer MEDICAID ==
[~2023-11-11] VITALS: Ht 167.6 cm; Wt 110.0 kg
[2023-11-11 19:06] VITALS: BP 170/118; PULSE 79; TEMP 99; O2SAT 99
[2023-11-11] MEDS ORDERED: BENZ-38 PO (19:59)
[2023-11-11 20:23] VITALS: RESP 17
== END 2023-11-11 20:45 | disposition home or self-care (01) ==
LOC: ER 18:28
DX: U07.1 COVID-19 (principal); J20.9 Acute bronchitis, unspecified; I10 Essential (primary) hypertension; G89.29 Other chronic pain; Z72.89 Other problems related to lifestyle; Z88.8 Allergy status to other drugs, medicaments and biological substances; Z79.899 Other long term (current) drug therapy
CPT/HCPCS: 99283

== ENCOUNTER 2024-02-14 09:32 | Emergency (ER) | payer MEDICAID ==
[~2024-02-14] VITALS: Ht 167.6 cm; Wt 103.0 kg
[2024-02-14 09:47] VITALS: TEMP 99
[2024-02-14 10:32] LABS: BILIRUBIN,URINE NEGATIVE (Neg); CLARITY,URINE CLEAR (Clear); COLOR,URINE YELLOW (Yellow); GLUCOSE, URINE NEGATIVE (Neg); KETONES,URINE NEGATIVE (Neg); LEUKOCYTE ESTERASE ,URINE NEGATIVE (Neg); NITRITES, URINE NEGATIVE (Neg); OCCULT BLOOD,URINE NEGATIVE (Neg); PROTEIN,URINE NEGATIVE (Neg); UROBILINOGEN,URINE 0.2 E.U/dL (0.2-1.0)
[2024-02-14 10:41] LABS: UA COLLECTION TYPE VOIDED
[2024-02-14] MEDS: ketorolac tromethamine 15mg/ml inj. IM ONE (11:02)
[2024-02-14] MEDS ORDERED: LEVO-65 PO (11:10)
[2024-02-14] MEDS: CefTRIAXone 500MG IM Kit w/LIDOcaine IM ONE (11:22)
[2024-02-14] MEDS: ondansetron 4mg rapidly disintigrating tab PO ONE (11:22)
[2024-02-14 11:35] VITALS: BP 139/104; PULSE 86; RESP 17; O2SAT 98
== END 2024-02-14 11:37 | disposition home or self-care (01) ==
LOC: ER 09:33
DX: N45.1 Epididymitis (principal); F41.9 Anxiety disorder, unspecified; I10 Essential (primary) hypertension; F17.210 Nicotine dependence, cigarettes, uncomplicated; Z72.89 Other problems related to lifestyle; Z88.8 Allergy status to other drugs, medicaments and biological substances; Z79.899 Other long term (current) drug therapy; Z79.2 Long term (current) use of antibiotics
CPT/HCPCS: 76870; 81003; 93976; 96372; 99285; J0696; J1885

== ENCOUNTER 2024-05-12 18:19 | Emergency (ER) | payer MEDICAID ==
[~2024-05-12] VITALS: Ht 167.6 cm; Wt 109.1 kg
[~2024-05-12 18:19] MED LIST changes: +ONDA-245 PO; -ONDA8TAB13 PO
[2024-05-12] MEDS: amLODIPine 5mg tablet PO ONE (19:42)
[2024-05-12] MEDS: ondansetron 4mg rapidly disintigrating tab PO ONE (20:39)
[2024-05-12] MEDS: ketorolac tromethamine 15mg/ml inj. IM ONE (20:41)
[2024-05-12 22:16] VITALS: BP 155/100; PULSE 78; RESP 20; TEMP 98.7; O2SAT 95
== END 2024-05-12 22:17 | disposition home or self-care (01) ==
LOC: ER 18:20
DX: U07.1 COVID-19 (principal); I10 Essential (primary) hypertension; G89.29 Other chronic pain; F41.9 Anxiety disorder, unspecified; Z98.890 Other specified postprocedural states; Z72.89 Other problems related to lifestyle; Z88.8 Allergy status to other drugs, medicaments and biological substances; Z79.899 Other long term (current) drug therapy
CPT/HCPCS: 36415; 87811; 96372; 99285; J1885

== ENCOUNTER 2024-06-17 05:41 | Day surgery (SDC) | payer MEDICAID ==
[2024-06-06 13:58] LABS: BASOPHILS % (AUTO) 0.3 % (0-1); EOSINOPHILS # (AUTO) 0.3 X10'3 (0-0.9); EOSINOPHILS % (AUTO) 3.7 % (0-6); LYMPHOCYTES # (AUTO) 1.9 X10'3 (1.1-4.8); LYMPHOCYTES % (AUTO) 23.4 % (21-51); MEAN CORPUSCULAR HEMOGLOBIN 29.8 PG (27.0-31.0); MEAN CORPUSCULAR VOLUME 87.6 FL (78-98); MEAN PLATELET VOLUME 7.4 FL (7.4-10.4); MONOCYTES # (AUTO) 0.8 X10'3 (0-0.9); NEUTROPHILS # (AUTO) 5.2 X10'3 (1.8-7.7); NEUTROPHILS % (AUTO) 62.6 % (42-75); PRE OP HEMATOCRIT 42.9 % (42.0-52.0); PRE OP HEMOGLOBIN 14.6 g/dL (14.0-17.9); PRE OP PLATELET COUNT 314 X10'3 (140-440); PRE OP WHITE BLOOD COUNT 8.3 10'3 (4.8-10.8); RED CELL DISTRIBUTION WIDTH 14.6 % (11.5-14.5)
[2024-06-06 14:00] LABS: BILIRUBIN,URINE NEGATIVE (Neg); CLARITY,URINE CLEAR (Clear); COLOR,URINE YELLOW (Yellow); GLUCOSE, URINE NEGATIVE (Neg); KETONES,URINE NEGATIVE (Neg); LEUKOCYTE ESTERASE ,URINE NEGATIVE (Neg); NITRITES, URINE NEGATIVE (Neg); OCCULT BLOOD,URINE NEGATIVE (Neg); PH,URINE 6.5 (4.8-8.0); PROTEIN,URINE NEGATIVE (Neg); UROBILINOGEN,URINE 0.2 E.U/dL (0.2-1.0)
[2024-06-06 14:18] LABS: ALBUMIN 4.1 G/DL (3.4-5.0); ALKALINE PHOSPHATASE 111 IU/L (46-116); BLOOD UREA NITROGEN 18 MG/DL (7-18); BUN/CREATININE RATIO 16.5 (10.0-20.0); CALCIUM 9.6 MG/DL (8.5-10.1); CHLORIDE 102 MMOL/L (99-107); CREATININE 1.09 MG/DL (0.60-1.10); PRE OP ANION GAP 7 (8-16); PRE OP AST 23 U/L (10-37); PRE OP BILIRUB, TOTAL 0.6 MG/DL (0.0-1.0); PRE OP GLUCOSE 95 MG/DL (70-104); PRE OP POTASSIUM 3.7 MMOL/L (3.4-5.1); PRE OP SODIUM 138 MMOL/L (135-145); TOTAL CARBON DIOXIDE 29.4 MMOL/L (24-32); TOTAL PROTEIN 8.2 G/DL (6.4-8.2); eGFR 75 ML/MIN
[2024-06-06 14:21] LABS: UA COLLECTION TYPE CLN CATCH MIDSTREAM
[2024-06-06 14:22] LABS: PRE OP ALT 80 U/L (30-65)
[~2024-06-17] VITALS: Ht 167.6 cm; Wt 105.6 kg
[2024-06-17] VITALS (8 sets, daily range): BP systolic 99–143; BP diastolic 70–94; PULSE 74–92; RESP 16–20; TEMP 98.3; O2SAT 93–97
[~2024-06-17 05:41] MED LIST changes: -HYDR-3927 PO; -INDLA80C PO; -LOSA100T58 PO; +LOSA50TA64 PO; -METH-797 PO; -ONDA-245 PO; -PANT-47 PO; -POTA-207 PO
[2024-06-17] MEDS: famotidine 20mg tablet PO ONE (06:23)
[2024-06-17] MEDS: ringers solution, lacted 1,000 ML IV SCH (06:24)
[2024-06-17] MEDS: cefazolin 2gm/D5W 100mL 100 ML IV ONE (06:24)
[2024-06-17] MEDS ORDERED: BUPIVAcaine/PF 2.5mg/ml (0.25%) 10ml vial ONE (06:31)
[2024-06-17] MEDS ORDERED: bacitracin 15gm ointment TP ONE (06:31)
[2024-06-17] MEDS ORDERED: sevoflurane 250ml liquid IH ONE (07:14)
[2024-06-17] MEDS ORDERED: MIDAZolam 1 MG/ML 5ML VIAL ONE (07:16)
[2024-06-17] MEDS ORDERED: fentaNYL /PF 50mcg/ml 5ml ampule ONE (07:16)
[2024-06-17] MEDS ORDERED: succinylcholine 20mg/ml inj IV ONE (07:18)
[2024-06-17] MEDS ORDERED: propofol inj 20 ML IV ONE (07:18)
[2024-06-17] MEDS ORDERED: ondansetron/PF 4mg/2ml inj ONE (07:18)
[2024-06-17] MEDS ORDERED: ROPIVAcaine 0.5% (5mg/ml) 30ml vial ONE ×3 (07:18→07:43)
[2024-06-17] MEDS ORDERED: dexamethasone sod phosphate 4mg/ml inj. ONE (07:18)
[2024-06-17] MEDS ORDERED: LIDOcaine 2% (20mg/ml) 5ml vial ONE (07:19)
[2024-06-17] MEDS ORDERED: acetaminophen 1,000mg/100ml IV 100 ML IV ONE (07:47)
[2024-06-17] MEDS: bacitracin 15gm ointment TP ONE (08:00)
[2024-06-17] MEDS ORDERED: labetalol 20mg/4ml (5mg/ml) syringe IV PRN (08:15)
[2024-06-17] MEDS ORDERED: ringers solution, lacted 1,000 ML IV SCH (08:15)
[2024-06-17] MEDS ORDERED: hydrALAZINE 20mg/ml inj. IV PRN (08:15)
[2024-06-17] MEDS ORDERED: fentaNYL/PF 50MCG/1 ML 2ML syringe IV PRN ×2 (08:15)
[2024-06-17] MEDS ORDERED: morphine 4 MG/ML inj SYRINge IV PRN (08:15)
[2024-06-17] MEDS ORDERED: morphine 2 MG/ML inj. syringe IV PRN (08:15)
[2024-06-17] MEDS: ondansetron/PF 4mg/2ml inj IV PRN (10:27)
[2024-06-17] MEDS: HYDROcodone/acetaminophen 5mg/325mg tablet PO ONE (10:27)
== END 2024-06-17 10:38 | disposition home or self-care (01) ==
LOC: PAS 05:41
PROVIDERS: ATTEND Podiatrist Foot & Ankle Surgery
DX: M76.61 Achilles tendinitis, right leg (principal); M25.471 Effusion, right ankle; M21.6X1 Other acquired deformities of right foot; M92.61 Juvenile osteochondrosis of tarsus, right ankle; G89.18 Other acute postprocedural pain; I10 Essential (primary) hypertension; G47.30 Sleep apnea, unspecified; F41.9 Anxiety disorder, unspecified; Z87.891 Personal history of nicotine dependence; Z79.891 Long term (current) use of opiate analgesic; Z79.899 Other long term (current) drug therapy; Z98.890 Other specified postprocedural states
CPT/HCPCS: 27650; 27687; 28118; 36415; 64447; 64450; 73650; 80053; 81003; 82948; 85025; 93005; A6222; C1713; J0131; J0330; J0690; J1100; J2250; J2405; J2704; J2795; J3010; J3490; J7030; J7120; Z7506; Z7508; Z7512; 76000; A4215; A4618; A6253; A6449; A7000

== ENCOUNTER 2024-07-30 18:36 | Emergency (ER) | payer MEDICAID ==
[~2024-07-30] VITALS: Ht 172.7 cm; Wt 105.4 kg
[2024-07-30 18:40] VITALS: TEMP 98.2
[2024-07-30 19:18] VITALS: BP 179/118; PULSE 90; RESP 18; O2SAT 97
== END 2024-07-30 19:23 | disposition home or self-care (01) ==
LOC: ER 18:37
DX: R20.8 Other disturbances of skin sensation (principal); I10 Essential (primary) hypertension; Z83.3 Family history of diabetes mellitus; Z88.8 Allergy status to other drugs, medicaments and biological substances; Z82.49 Family history of ischemic heart disease and other diseases of the circulatory system
CPT/HCPCS: 99281

== ENCOUNTER 2024-11-14 06:04 | Emergency (ER) | payer MEDICAID ==
[~2024-11-14] VITALS: Ht 167.6 cm; Wt 89.2 kg
[2024-11-14 06:43] LABS: BASOPHILS % (AUTO) 0.3 % (0-1); EOSINOPHILS # (AUTO) 0.2 X10'3 (0-0.9); EOSINOPHILS % (AUTO) 2.4 % (0-6); HEMATOCRIT 44.5 % (42.0-52.0); HEMOGLOBIN 15.3 g/dl (14.0-17.9); LYMPHOCYTES # (AUTO) 1.5 X10'3 (1.1-4.8); MEAN CORPUSCULAR HEMOGLOBIN 29.9 PG (27.0-31.0); MEAN CORPUSCULAR HGB CONC 34.3 g/dL (33.0-36.5); MEAN CORPUSCULAR VOLUME 87.2 FL (78-98); MEAN PLATELET VOLUME 7.3 FL (7.4-10.4); MONOCYTES # (AUTO) 0.6 X10'3 (0-0.9); MONOCYTES % (AUTO) 8.9 % (2-12); NEUTROPHILS # (AUTO) 4.5 X10'3 (1.8-7.7); NEUTROPHILS % (AUTO) 66.4 % (42-75); PLATELET COUNT 314 X10'3 (140-440); RED BLOOD COUNT 5.11 X10'6 (4.70-6.10); RED CELL DISTRIBUTION WIDTH 14.7 % (11.5-14.5); WHITE BLOOD COUNT 6.7 X10'3 (4.5-11.0)
[2024-11-14 06:59] LABS: ALANINE AMINOTRANSFERASE 66 U/L (12-78); ALBUMIN 3.9 G/DL (3.4-5.0); ALBUMIN/GLOBULIN RATIO 0.9 (1.1-1.5); ALKALINE PHOSPHATASE 90 IU/L (46-116); ANION GAP 9 (8-16); ASPARTATE AMINO TRANSFERASE 28 U/L (10-37); BILIRUBIN,TOTAL 0.8 MG/DL (0.1-1.0); BLOOD UREA NITROGEN 21 MG/DL (7-18); BUN/CREATININE RATIO 19.6 (10.0-20.0); CALCIUM 9.5 MG/DL (8.5-10.1); CHLORIDE 106 MMOL/L (99-107); CREATININE 1.07 MG/DL (0.60-1.10); GLUCOSE 124 MG/DL (70-104); LIPASE 47 U/L (16-77); POTASSIUM 3.8 MMOL/L (3.5-5.1); SODIUM 141 MMOL/L (135-145); TOTAL PROTEIN 8.2 G/DL (6.4-8.2); eCRCL 82 ML/MIN; eGFR 76 ML/MIN
[2024-11-14] MEDS: morphine 4 MG/ML inj SYRINge IV ONE (07:13)
[2024-11-14] MEDS: ketorolac trometh 30MG/ML vial 30 MG/ML VIAL IV ONE (07:13)
[2024-11-14] MEDS ORDERED: iohexol 300mg/ml 100ml inj. ONE (08:27)
[2024-11-14] MEDS ORDERED: famotidine 10mg tablet PO STA (09:20)
[2024-11-14 09:26] VITALS: TEMP 96.5
[2024-11-14] MEDS: famotidine 20mg tablet PO STA (09:57)
[2024-11-14 10:15] VITALS: BP 142/99; PULSE 69; RESP 17; O2SAT 97
== END 2024-11-14 11:03 | disposition home or self-care (01) ==
LOC: ER 06:05
DX: K21.9 Gastro-esophageal reflux disease without esophagitis (principal); R10.11 Right upper quadrant pain; I10 Essential (primary) hypertension; F41.9 Anxiety disorder, unspecified; Z88.8 Allergy status to other drugs, medicaments and biological substances; Z98.890 Other specified postprocedural states
CPT/HCPCS: 36415; 74177; 76700; 80053; 83690; 84484; 85025; 93005; 96374; 96375; 99285; J1885; J2270; Q9967

== ENCOUNTER 2025-05-25 11:46 | Emergency (ER) | payer MEDICAID ==
[~2025-05-25] VITALS: Ht 167.6 cm; Wt 112.5 kg
--- NOTE | 2025-05-25 11:52 | ELECTROCARDIOGRAPH REPORT ---
[facility] Test Date: 2025-05-25 Test Time: 11:49:32 Pat Name: TC DIAZ Department: EMERGENCY ROOM Patient ID: [facility]-[id number] Room: Gender: M [employer]: : 1985 Requested By: ALINE FERNANDES Order Number: [id number] Reading MD: Dr. Mariano Leonard Measurements Intervals Ericson Rate: 83 P: 4 IA: 152 QRS: 0 QRSD: 99 T: 47 QT: 369 QTc: 434 Interpretive Statements Sinus rhythm Posterior infarct, old Electronically Signed On 05-26-2025 19:28:[address] Mariano Leonard Please click the below link to view image of tracing.
[2025-05-25 11:54] VITALS: TEMP 98.9
[2025-05-25 12:16] LABS: MEAN PLATELET VOLUME 7.5 FL (7.4-10.4); RED CELL DISTRIBUTION WIDTH 15.0 % (11.5-14.5)
[2025-05-25 12:27] LABS: CREATININE 1.10 MG/DL (0.60-1.10); TOTAL CARBON DIOXIDE 28.1 MMOL/L (24-32); eCRCL 80 ML/MIN; eGFR 74 ML/MIN
--- NOTE | 2025-05-25 12:29 | Physician Documentation ---
History of Present Illness ~ Chief Complaint: Chest Pain Stated Complaint: CHEST TIGHTNESS SOB Time Seen by MD: 12:28 Primary Medical Doctor: CAREN HAMMOND Patient presents to the emergency department for evaluation of sternal chest pressure experienced at 3:00 a.m. this. He reports that the pain has since subsided he does currently report a little bit of nausea and may have had a loose bowel movement. History of intermittent chest pain. Medication Reconciliation Allergies: Coded Allergies: lisinopril (Verified Allergy, Mild, 11/14/24) varenicline (Verified Allergy, Mild, 11/14/24) Scheduled Amlodipine Besylate (Amlodipine Besylate), 1 TAB PO DAILY, (Reported) Losartan Potassium (Losartan Potassium), 1 TAB PO HS, (Reported) Past Medical History Past Medical History: Hypertension, *RENAL/*, Chronic Pain, Anxiety Past Surgical History: orthopedic surgeries Patient History: FH: diabetes mellitus FATHER FH: hypertension MOTHER Alcohol Use: Occasionally Drug Use: none Lives with: Family Lives In: Home Occupation: employed Review of Systems All Other Systems at this time: Reviewed and Negative Physical Exam Vital Signs: Temperature: 98.9, Source: Oral, Heart Rate: 81, Respiratory Rate: 16, BP: 181/120, Pulse Oximetry: 99, Weight: 112.500 Oxygen Flow Rate: 0 General Appearance: alert, WD/WN EENT: normal ENT inspection Neck: normal inspection, full range of motion Respiratory: lungs clear, normal breath sounds, no respiratory distress Chest: no accessory muscle use Cardiovascular: regular rate, rhythm, no edema, no murmur Gastrointestinal: normal palpation, non-tender Extremities: normal inspection Neurologic: oriented x4, memory intact Psychiatric: normal mood/affect Skin: normal color, warm/dry Progress Progress Note Patient who is well-appearing with unremarkable exam. CBC, chemistry, troponin x2 negative. EKG and chest x-ray negative. Etiology unclear. Certainly could be cardiac versus pleuritic versus GI versus anxiety. Recommending follow up with PCP for further evaluation with stress testing. Discharged in good condition. Return here if new or worsening symptoms. Results/Orders Results/Orders Orders - ALINE FERNANDES MD Chest,Single View (05/25/25 11:57) Monitor (05/25/25 11:57) Saline Lock (05/25/25 11:57) Oxygen (05/25/25 11:57) Completed Orders - ALINE FERNANDES MD Electrocardiogram (05/25/25 11:49) Chest,Single View (05/25/25 11:57) Cbc/Diff (05/25/25 11:57) BMP (05/25/25 11:57) PBNP (05/25/25 11:57) Hs Troponin I W Calculations (05/25/25 11:57) Hs Troponin I W Calculations (05/25/25 13:57) Vital Signs 05/25/25 05/25/25 05/25/25 05/25/25 11:54 13:00 13:21 14:00 Temp 98.9 Pulse 81 75 68 Resp 16 24 16 17 B/P (MAP) 181/120 146/104 (118) 145/98 (114) Pulse Ox 99 97 97 O2 Flow Rate 0 0 0 05/25/25 15:07 Pulse 72 Resp 16 B/P (MAP) 134/104 Pulse Ox 97 Laboratory Tests Test 05/25/25 11:51 05/25/25 14:02 White Blood Count 9.8 Red Blood Count 4.90 Hemoglobin 14.8 Hematocrit 41.7 L Mean Corpuscular Volume 85.1 Mean Corpuscular Hemoglobin 30.2 Mean Corpuscular Hemoglobin Concent 35.6 Red Cell Distribution Width 15.0 H Platelet Count 317 Mean Platelet Volume 7.5 Neutrophils (%) (Auto) 68.0 Lymphocytes (%) (Auto) 21.1 Monocytes (%) (Auto) 8.8 Eosinophils (%) (Auto) 1.8 Basophils (%) (Auto) 0.3 Neutrophils # (Auto) 6.7 Lymphocytes # (Auto) 2.1 Monocytes # (Auto) 0.9 Eosinophils # (Auto) 0.2 Basophils # (Auto) 0.0 CBC Comment Sodium Level 138 Potassium Level 3.2 L Chloride Level 103 Carbon Dioxide Level 28.1 Anion Gap 7 L Blood Urea Nitrogen 23 H Creatinine 1.10 Estimated GFR/1.73 m2 74 BUN/Creatinine Ratio 20.9 H Glucose Level 97 Calcium Level 9.8 Troponin I High Sensitivity 5 5 Pro-B-Type Natriuretic Peptide < 30 Albumin 4.1 Chemistry Comments Troponin I High Sens Percent Delta 0 Troponin I Hi Sens Absolute Change 0 EKG/XRAY/CT/US/VASC/MRI EKG : EKG Rate: 83 EKG: NSR, no ST T wave changes Departure Impression: Primary Impression: Chest pain Qualified Codes: R07.9 - Chest pain, unspecified Condition: Stable Discharge Instructions: Nonspecific Chest Pain, Adult Additional Instructions: Follow up with your doctor in the next 7-10 days for further testing. Return here if new or worsening symptoms prior to follow up. Referrals: NO PRIMARY CARE PROVIDER (PCP) Education Educated: Patient Educated regarding: diagnosis, need for follow up Signature Scribe Signature: No scribe used Attestation: No scribe used MARKIE BARBER May 25, 2025 12:29 ALINE FERNANDES MD May 25, 2025 14:55
[2025-05-25 12:40] LABS: PRO BRAIN NATRIURETIC PEPTIDE < 30 PG/ML (0-125)
--- NOTE | 2025-05-25 13:02 | RADIOLOGY REPORT ---
EXAM: DI CHEST,SINGLE VIEW Indication: CP Technique: Single frontal view of the chest was obtained Comparison: DI CHEST,SINGLE VIEW on DOS: 09/16/23, DI CHEST,SINGLE VIEW on DOS: 07/04/23, CHEST,SINGLE VIEW on DOS: 11/24/20, CHEST,SINGLE VIEW on DOS: 08/12/20 FINDINGS: Lines and Tubes: None Lungs: No focal consolidation. Linear scarring in the right lower lung. Pleura: No effusion. No pneumothorax. Cardiomediastinal contours: Unremarkable. Atherosclerotic vascular calcifications of the thoracic ao rta are noted. Bones: No acute osseous abnormality. IMPRESSION: No acute cardiopulmonary disease.
[2025-05-25 15:07] VITALS: BP 134/104; PULSE 72; RESP 16; O2SAT 97
== END 2025-05-25 15:17 | disposition home or self-care (01) ==
LOC: ER 11:47
DX: R07.89 Other chest pain (principal); I10 Essential (primary) hypertension; F41.9 Anxiety disorder, unspecified; Z88.8 Allergy status to other drugs, medicaments and biological substances; Z79.899 Other long term (current) drug therapy; Z72.89 Other problems related to lifestyle
CPT/HCPCS: 36415; 71045; 80048; 83880; 84484; 85025; 93005; 99285